=== PATIENT | female | born 1925 | race Caucasian/White ===

== ENCOUNTER 2016-10-15 21:58 | Emergency (ER) | payer BC ==
[2016-10-15 22:24] VITALS: BP 138/73; PULSE 69; TEMP 98.2; BMI 27.3
[2016-10-15] MEDS ORDERED: SODIUM CHLORIDE 500 ML IV STA (23:44)
[2016-10-15] MEDS ORDERED: ALBUTEROL SO4 2.5/IPRATROPIUM 0.5 INH SOL 3 ML VIAL.NEB. NEB ONE (23:52)
[2016-10-15] MEDS: ALBUTEROL SO4 2.5/IPRATROPIUM 0.5 INH SOL 3 ML VIAL.NEB. NEB SCH (23:54)
[2016-10-16] MEDS: ALBUTEROL SO4 2.5/IPRATROPIUM 0.5 INH SOL 3 ML VIAL.NEB. NEB SCH ×2 (00:20→00:39)
[2016-10-16 00:36] LABS: BASOPHIL 0.6 % (0-2.0); EOSINOPHIL 0.3 % (0-4.5); MCH 30.9 pg (25.7-33.7); MCHC 34.1 g/dl (32.0-36.0); MEAN CELL VOLUME 90.6 fl (80-96); MEAN PLT VOLUME 6.6 fl (7.5-11.1); NEUTROPHILS 76.6 % (42.8-82.8); PLATELET COUNT 302 K/MM3 (134-434); RDW 13.3 % (11.6-15.6); WHITE BLOOD COUNT 7.4 K/mm3 (4.0-10.0)
[2016-10-16 01:07] LABS: ALBUMIN 3.8 g/dl (3.4-5.0); BILIRUBIN,TOTAL 0.4 mg/dL (0.2-1.0); CALCIUM 8.8 mg/dL (8.5-10.1); CREATININE 1.3 mg/dL (0.55-1.02); TOT PROT 7.3 g/dl (6.4-8.2)
--- NOTE | 2016-10-16 01:19 | PDOC ---
History of Present Illness - General Chief Complaint: Cold Symptoms Stated Complaint: COLD SYMPTOMS Time Seen by Provider: 10/15/16 23:25 History Source: Patient, Family Exam Limitations: No Limitations - History of Present Illness Initial Comments: 10/16/16 01:16 89yo Female patient presents to ED with family c/o coughing, wheezing, fever x 1 week (Friday). Patient was seen and evaluated by PCP, she was prescribed Z- maria fernanda which she completed but symptoms still persist. Patient c/o weakness and not feeling any better. She denies any other complaints at this time. Past History - Travel Traveled outside of the country in the last 30 days: No Close contact w/someone who was outside of country & ill: No - Past Medical History Allergies/Adverse Reactions: Allergies Allergy/AdvReac Type Severity Reaction Status Date / Time No Known Allergies Allergy Verified 10/15/16 22:21 Home Medications: Ambulatory Orders Amlodipine Besylate [Norvasc -] 10 mg PO DAILY 04/28/13 Dronedarone HCl [Multaq] 400 mg PO BID 04/28/13 Warfarin Na [Coumadin -] 3 mg PO DAILY 04/28/13 Atorvastatin Ca [Lipitor] 10 mg PO HS #0 tablet 05/04/13 Metoprolol Succinate [Toprol Xl -] 25 mg PO PRN PRN 12/14/15 Levofloxacin [Levaquin -] 500 mg PO DAILY #5 tablet 10/16/16 Cardiac Disorders: Yes (A FIB) HTN: Yes Hypercholesterolemia: Yes - Psycho/Social/Smoking Cessation Hx Anxiety: No Suicidal Ideation: No Smoking Status: No Smoking History: Never smoked Number of Cigarettes Smoked Daily: 0 Information on smoking cessation initiated: No Hx Alcohol Use: No Drug/Substance Use Hx: No Substance Use Type: None Hx Substance Use Treatment: No Respiratory Specific PMHX - Complaint Specific PMHX Angina: No Bronchitis: Yes Pneumonia: No Pulmonary Embolus: No TB (Tuberculosis): No Review of Systems - Review of Systems Able to Perform ROS?: Yes Is the patient limited Citizen [place] proficient: Yes Constitutional: Yes: Fever. No: Chills Respiratory: Yes: Cough, Shortness of Breath, Wheezing. No: Orthopnea, Stridor Cardiac (ROS): Yes: Chest Pain (WITH DEEP BREATH). No: Lightheadedness, Palpitations, Syncope, Chest Tightness ABD/GI: No: Constipated, Diarrhea, Nausea, Poor Appetite, Poor Fluid Intake, Vomiting : No: Dysuria Musculoskeletal: No: Back Pain Integumentary: No: Bruising, Erythema, Rash Neurological: No: Headache, Seizure, Dizziness All Other Systems: Reviewed and Negative *Physical Exam - Vital Signs Last Vital Signs Temp Pulse Resp BP Pulse Ox 98.2 F 69 14 138/73 97 10/15/16 22:21 10/15/16 22:21 10/15/16 22:21 10/15/16 22:21 10/15/16 22:21 - Physical Exam General Appearance: Yes: Nourished, Appropriately Dressed, Mild Distress. No: Apparent Distress, Moderate Distress, Severe Distress Neck: positive: Trachea midline, Supple. negative: Rigid, Stridor Respiratory/Chest: positive: Wheezing (THROUGHOUT) Cardiovascular: positive: Regular Rhythm, Regular Rate. negative: Edema, JVD, Murmur Gastrointestinal/Abdominal: positive: Normal Bowel Sounds, Soft Musculoskeletal: positive: Normal Inspection. negative: CVA Tenderness Extremity: positive: Normal Capillary Refill, Normal Inspection, Normal Range of Motion. negative: Swelling Integumentary: positive: Normal Color, Dry, Warm. 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 NML intact, Fully Oriented, Alert, Normal Mood/ Affect, Normal Response, Motor Strength 5/5 Heart Score/ECG Review - ECG Impressions Normal ECG: Yes Non-specific ST Elevation: No Ischemic Changes: No Bradycardia: No Torsades nate Pointes: No WPW: No ED Treatment Course - LABORATORY CBC & Chemistry Diagram: 10/16/16 00:00 10/16/16 00:00 - ADDITIONAL ORDERS Additional order review: 10/16/16 00:00 RBC 4.10 MCV 90.6 MCHC 34.1 RDW 13.3 MPV 6.6 L Neutrophils % 76.6 Lymphocytes % 16.3 D Monocytes % 6.2 Eosinophils % 0.3 Basophils % 0.6 - RADIOLOGY Radiology Studies Ordered: Category Date Time Status CHEST PA & LAT [RAD] Stat Radiology 10/16/16 00:23 Taken - Medications Given in the ED: ED Medications Discontinued Medications Generic Name Dose Route Start Last Admin Trade Name Freq PRN Reason Stop Dose Admin Albuterol/Ipratropium 1 amp 10/15/16 23:45 10/16/16 00:39 Duoneb - NEB 10/16/16 00:16 1 amp Q15M TROY Administration Sodium Chloride 500 mls @ 500 mls/hr 10/15/16 23:44 10/16/16 00:10 Normal Saline - IV 10/16/16 00:43 500 mls/hr ASDIR STA Administration *DC/Admit/Observation/Transfer Diagnosis at time of Disposition: Asthmatic bronchitis with acute exacerbation - Discharge Dispostion Disposition: HOME Condition at time of disposition: Improved Admit: No - Prescriptions Prescriptions: Levofloxacin [Levaquin -] 500 mg PO DAILY #5 tablet - Patient Instructions Printed Discharge Instructions: DI for Acute Bronchitis Additional Instructions: TAKE MEDICATIONS PRESCRIBED. DRINK PLENTY WATER. RETURN IF SYMPTOMS WORSEN OR ANY CONCERNS FOR FURTHER EVALUATION. Print Language: CITIZEN OF [place]
[2016-10-16] MEDS ORDERED: methylPREDNISolone NA SUCC 125 MG/2 ML VIAL IVPB ONE (01:42)
[2016-10-16] MEDS ORDERED: methylPREDNISolone NA SUCC 125 MG/2 ML VIAL ONE (01:52)
--- NOTE | 2016-10-16 01:58 | PDOC ---
[id number] 97 10/15/16 22:21 10/15/16 22:21 10/15/16 22:21 10/15/16 22:21 10/15/16 22:21 ED Treatment Course - LABORATORY CBC & Chemistry Diagram: 10/16/16 00:00 10/16/16 00:00 - ADDITIONAL ORDERS Additional order review: Laboratory Results 10/16/16 10/16/16 00:00 00:00 Sodium 132 L Potassium 4.3 Chloride 96 L Carbon Dioxide 25 Anion Gap 11 BUN 31 H Creatinine 1.3 H Creat Clearance w eGFR 38.57 Random Glucose 99 D Calcium 8.8 Total Bilirubin 0.4 D AST 26 ALT 24 Alkaline Phosphatase 64 B-Natriuretic Peptide 479.91 H Total Protein 7.3 Albumin 3.8 10/16/16 01:20 Influenza Types A,B Antigen (JOHN) - Final Nasopharyngeal Swab - Final 10/16/16 00:00 RBC 4.10 MCV 90.6 MCHC 34.1 RDW 13.3 MPV 6.6 L Neutrophils % 76.6 Lymphocytes % 16.3 D Monocytes % 6.2 Eosinophils % 0.3 Basophils % 0.6 - Medications Given in the ED: ED Medications Discontinued Medications Generic Name Dose Route Start Last Admin Trade Name Freq PRN Reason Stop Dose Admin Albuterol/Ipratropium 1 amp 10/15/16 23:45 10/16/16 00:39 Duoneb - NEB 10/16/16 00:16 1 amp Q15M TROY Administration Sodium Chloride 500 mls @ 500 mls/hr 10/15/16 23:44 10/16/16 00:10 Normal Saline - IV 10/16/16 00:43 500 mls/hr ASDIR STA Administration Methylprednisolone Sodium Succinate 125 mg 10/16/16 01:42 10/16/16 01:55 Solu-Medrol - IVPB 10/16/16 01:43 125 mg ONCE ONE Administration Medical Decision Making - Medical Decision Making 10/16/16 01:58 agree with care from MARGARETH Gaines *DC/Admit/Observation/Transfer Diagnosis at time of Disposition: Asthmatic bronchitis with acute exacerbation - Discharge Dispostion Disposition: HOME Condition at time of disposition: Improved - Prescriptions Prescriptions: Levofloxacin [Levaquin -] 500 mg PO DAILY #5 tablet - Referrals Referrals: Greg,Emmanuel, MD [Primary Care Provider] - - Patient Instructions Printed Discharge Instructions: DI for Acute Bronchitis Additional Instructions: TAKE MEDICATIONS PRESCRIBED. DRINK PLENTY WATER. RETURN IF SYMPTOMS WORSEN OR ANY CONCERNS FOR FURTHER EVALUATION. Print Language: ROMANIAN
--- NOTE | 2016-10-16 16:05 | EKG ---
Test Reason : Blood Pressure : / mmHG Vent. Rate : 077 BPM Atrial Rate : 077 BPM P-R Int : 190 ms QRS Dur : 090 ms QT Int : 374 ms P-R-T Axes : 026 -06 -11 degrees QTc Int : 423 ms NORMAL SINUS RHYTHM NONSPECIFIC T WAVE ABNORMALITY ABNORMAL ECG WHEN COMPARED WITH ECG OF 14-DEC-2015 09:52, T WAVE INVERSION NOW EVIDENT IN LATERAL LEADS Confirmed by SLADE CARVAJAL MD ([id number]) on 10/16/2016 4:05:14 PM Referred By: Confirmed By:SLADE CARVAJAL MD
== END 2016-10-16 02:29 | disposition home or self-care (01) ==
LOC: JER 21:58
PROC: 3E0F7GC Introduction of Other Therapeutic Substance into Respiratory Tract, Via Natural or Artificial Opening (ICD-10-PCS; principal; 2016-10-15)
PROC: 3E0337Z Introduction of Electrolytic and Water Balance Substance into Peripheral Vein, Percutaneous Approach (ICD-10-PCS; 2016-10-15)
PROC: 3E0333Z Introduction of Anti-inflammatory into Peripheral Vein, Percutaneous Approach (ICD-10-PCS; 2016-10-15)
DX: J45.901 Unspecified asthma with (acute) exacerbation (principal); I48.91 Unspecified atrial fibrillation; Z79.01 Long term (current) use of anticoagulants; I10 Essential (primary) hypertension; E78.00 Pure hypercholesterolemia, unspecified
CPT/HCPCS: 36415; 71020-TC; 80053; 83880; 85025; 87804; 93005; 93010; 94640; 96361; 96374; 99281-25